=== PATIENT | male | born 1980 | race African-American/Black ===

== ENCOUNTER 2019-06-05 11:46 | Emergency (ER) | payer OTHER ==
[~2019-06-05] VITALS: Ht 172.7 cm; Wt 110.0 kg
[2019-06-05 11:56] VITALS: BP 182/114
== END 2019-06-05 13:31 | disposition left against medical advice (07) ==
LOC: ER 11:46
DX: F41.9 Anxiety disorder, unspecified (principal); F19.10 Other psychoactive substance abuse, uncomplicated; Z53.21 Procedure and treatment not carried out due to patient leaving prior to being seen by health care provider